=== PATIENT | male | born 1995 | race African-American/Black ===

== ENCOUNTER 2021-10-09 02:22 | Emergency (ER) | payer SELFPAY ==
[2021-10-09] MEDS ORDERED: Ketorolac Tromethamine 30 MG/ML VIAL ONE (03:03)
== END 2021-10-09 03:09 | disposition home or self-care (01) ==
LOC: CSHERS 02:22
DX: K04.7 Periapical abscess without sinus (principal)
CPT/HCPCS: 96372; 99282; J1885

== ENCOUNTER 2022-07-03 08:30 | Emergency (ER) | payer SELFPAY | END 2022-07-03 09:25 | disposition home or self-care (01) | LOC: CSHERS 08:30 | DX: B19.10 Unspecified viral hepatitis B without hepatic coma (principal); F17.210 Nicotine dependence, cigarettes, uncomplicated | CPT/HCPCS: 99283 ==

== ENCOUNTER 2022-07-19 19:02 | Emergency (ER) | payer OTHER, SELFPAY ==
[2022-07-19] MEDS ORDERED: Ketorolac Tromethamine 30 MG/ML VIAL ONE (21:29)
== END 2022-07-19 23:08 | disposition home or self-care (01) ==
LOC: CSHERS 19:02
DX: S86.012A Strain of left Achilles tendon, initial encounter (principal); F17.210 Nicotine dependence, cigarettes, uncomplicated; X50.1XXA Overexertion from prolonged static or awkward postures, initial encounter; Y93.67 Activity, basketball
CPT/HCPCS: 29515; 96372; J1885

== ENCOUNTER 2022-12-02 15:21 | Emergency (ER) | payer SELFPAY | END 2022-12-02 19:44 | disposition home or self-care (01) | LOC: CSHERS 15:21 | DX: H60.91 Unspecified otitis externa, right ear (principal); H73.91 Unspecified disorder of tympanic membrane, right ear; F17.210 Nicotine dependence, cigarettes, uncomplicated | CPT/HCPCS: 99282 ==

== ENCOUNTER 2024-03-26 07:58 | Emergency (ER) | payer SELFPAY ==
[2024-03-26] MEDS ORDERED: Midazolam HCl 2 mg/2 ml Vial ONE (12:06)
[2024-03-26] MEDS ORDERED: Midazolam HCl 10 mg/2 ml Vial ONE (12:10)
== END 2024-03-26 08:31 | disposition home or self-care (01) ==
LOC: CSHERS 07:58
DX: B07.8 Other viral warts (principal); R21 Rash and other nonspecific skin eruption; F17.210 Nicotine dependence, cigarettes, uncomplicated; Z55.0 Illiteracy and low-level literacy
CPT/HCPCS: 99282; J2250

== ENCOUNTER → 2024-04-20 | Emergency (ER) | payer SELFPAY ==
[~2024-04-20] MED LIST: Ketorolac Tromethamine 30 MG (1 mL) VIAL ONE
== END ==
LOC: CSHERS 10:07
DX: K04.7 Periapical abscess without sinus (principal); K02.9 Dental caries, unspecified; F17.210 Nicotine dependence, cigarettes, uncomplicated
CPT/HCPCS: 96372; 99282; J1885